=== PATIENT | male | born 1940 | race Caucasian/White ===

== ENCOUNTER → 2017-01-18 | Outpatient (CLI) | payer MEDICARE ==
[~2017-01-18] MED LIST: AMLO10TA2 PO; ASPI-650 PO; ATEN50TA41 PO; CALC200T3 PO; CHOL20002 PO; CLOP75TA22 PO; CYAN3000 PO; DIPH25CA61 PO; FURO-93 PO; HYDR-3138 PO; INSU100I13 SC; LISI-170 PO; MAGN300C PO; METF500T4 PO; MULT-717 PO; OMEG1CAP48 PO; REGADENOSON 0.4 MG/5 ML SYRINGE ONE; SIMV40TA3 PO; UBID30CA6 PO
== END | disposition home or self-care (01) ==
LOC: CFH 12:06
PROVIDERS: ATTEND Internal Medicine Cardiovascular Disease
DX: I25.10 Atherosclerotic heart disease of native coronary artery without angina pectoris (principal)
CPT/HCPCS: 78452; 93017; A9502; J2785

== ENCOUNTER → 2017-04-18 | Outpatient (CLI) | payer MEDICARE ==
[~2017-04-18] MED LIST changes: -REGADENOSON 0.4 MG/5 ML SYRINGE ONE
== END | disposition home or self-care (01) ==
LOC: CFH 12:38
PROVIDERS: ATTEND Internal Medicine Cardiovascular Disease
DX: I08.0 Rheumatic disorders of both mitral and aortic valves (principal); I25.810 Atherosclerosis of coronary artery bypass graft(s) without angina pectoris; I25.5 Ischemic cardiomyopathy; I10 Essential (primary) hypertension; E11.9 Type 2 diabetes mellitus without complications; Z95.0 Presence of cardiac pacemaker; Z95.5 Presence of coronary angioplasty implant and graft
CPT/HCPCS: 93306

== ENCOUNTER 2018-01-13 15:45 | Emergency (ER) | payer MEDICARE ==
[~2018-01-13] VITALS: Ht 175.3 cm; Wt 97.2 kg
[~2018-01-13 15:45] MED LIST changes: -CLOP75TA22 PO; +CLOP75TA52 PO; -HYDR-3138 PO; +HYDR-3237 PO
[2018-01-13 16:24] LABS: BASOPHILS # (AUTO) 0.04 x10^3/uL (0-0.1); BASOPHILS % (AUTO) 1 % (0-1); EOSINOPHILS # (AUTO) 0.19 x10^3/uL (0-0.4); EOSINOPHILS % (AUTO) 2 % (1-7); LYMPHOCYTES # (AUTO) 1.85 x10^3/uL (1-3.4); LYMPHOCYTES % (AUTO) 23 % (22-44); MD NO; MEAN CORPUSCULAR HEMOGLOBIN 25.5 pg (27.5-34.5); MEAN CORPUSCULAR HGB CONC 32.2 g/dL (33.2-36.2); MEAN CORPUSCULAR VOLUME 79.4 fL (81-97); MEAN PLATELET VOLUME 7.3 fL (7.4-10.4); MONOCYTES # (AUTO) 0.99 x10^3/uL (0.2-0.8); MONOCYTES % (AUTO) 12 % (2-9); NEUTROPHILS # (AUTO) 4.98 x10^3/uL (1.8-6.8); NEUTROPHILS % (AUTO) 62 % (42-75); PLATELET COUNT 277 x10^3/uL (130-400); RED BLOOD COUNT 4.84 x10^6/uL (4.38-5.82); RED CELL DISTRIBUTION WIDTH 17.8 % (9.4-14.8)
[2018-01-13 16:33] LABS: INTERNATIONAL NORMALIZED RATIO 2.34 (0.93-1.1); PROTHROMBIN TIME 23.7 Seconds (9.6-11.5)
[2018-01-13 16:37] LABS: ANION GAP 9 mmol/L (5-15); CALCIUM 9.6 mg/dL (8.5-10.1); CHLORIDE 109 mmol/L (98-107); CREATININE 1.58 mg/dL (0.7-1.3)
[2018-01-13 16:40] LABS: TROPONIN I < 0.015 ng/mL (0.000-0.045)
[2018-01-13] MEDS ORDERED: SODIUM CHLORIDE FLUSH 10ML SYR IVF ONE (17:30)
[2018-01-13] MEDS ORDERED: OMNIPAQUE 350 MG/ML, 100ML BOTTLE ONE (17:57)
[2018-01-13] MEDS ORDERED: ACET-1600 PO ×2 (18:16)
[2018-01-13] MEDS ORDERED: TAMS0.4C2 PO (18:16)
[2018-01-13] MEDS ORDERED: PANT40TA5 PO (18:16)
[2018-01-13 18:22] VITALS: BP 130/67
== END 2018-01-13 19:13 | disposition home or self-care (01) ==
LOC: ED 19:07
DX: R06.00 Dyspnea, unspecified (principal); I50.1 Left ventricular failure, unspecified; I25.2 Old myocardial infarction; E78.00 Pure hypercholesterolemia, unspecified; E11.9 Type 2 diabetes mellitus without complications; R53.1 Weakness; R79.1 Abnormal coagulation profile
CPT/HCPCS: 36415; 71045; 71275; 80048; 82040; 83880; 84484; 85025; 85610; 85730; 93005; 99285; Q9967

== ENCOUNTER → 2018-01-17 | Outpatient (CLI) | payer MEDICARE ==
[~2018-01-17] MED LIST changes: +ACET-1600 PO; +PANT40TA5 PO; +REGADENOSON 0.4 MG/5 ML SYRINGE ONE; +TAMS0.4C2 PO
== END | disposition home or self-care (01) ==
LOC: CFH 12:35
PROVIDERS: ATTEND Internal Medicine Cardiovascular Disease
DX: I21.09 ST elevation (STEMI) myocardial infarction involving other coronary artery of anterior wall (principal); I25.10 Atherosclerotic heart disease of native coronary artery without angina pectoris; I25.5 Ischemic cardiomyopathy
CPT/HCPCS: 78452; 93017; A9502; J2785

== ENCOUNTER 2018-08-09 09:21 | Inpatient (IN) | payer MEDICARE ==
[~2018-08-09] VITALS: Ht 175.3 cm; Wt 89.9 kg
[~2018-08-09 09:21] MED LIST changes: -AMLO10TA2 PO; +AMLO10TA6 PO; -CHOL20002 PO; +CHOL200052 PO; +METF500T17 PO; -METF500T4 PO; -REGADENOSON 0.4 MG/5 ML SYRINGE ONE
[2018-08-09] MEDS ORDERED: ASPIRIN 81 MG TABLET CHEW PO ONE (10:00)
[2018-08-09] MEDS ORDERED: LORA10TA75 PO (10:00)
[2018-08-09] MEDS ORDERED: ATOR40TA78 PO (10:02)
[2018-08-09] MEDS ORDERED: UBID100C41 PO (10:09)
[2018-08-09] MEDS ORDERED: MIRA25TA PO (10:12)
[2018-08-09] MEDS ORDERED: HYDR-3240 PO (10:13)
[2018-08-09] MEDS ORDERED: ASPIRIN 81 MG TABLET CHEW ONE (10:17)
[2018-08-09 10:29] LABS: BASOPHILS # (AUTO) 0.05 x10^3/uL (0-0.1); BASOPHILS % (AUTO) 1 % (0-1); EOSINOPHILS # (AUTO) 0.11 x10^3/uL (0-0.4); EOSINOPHILS % (AUTO) 1 % (1-7); LYMPHOCYTES # (AUTO) 1.57 x10^3/uL (1-3.4); LYMPHOCYTES % (AUTO) 19 % (22-44); MD NO; MEAN CORPUSCULAR HEMOGLOBIN 25.8 pg (27.5-34.5); MEAN CORPUSCULAR HGB CONC 32.6 g/dL (33.2-36.2); MEAN CORPUSCULAR VOLUME 79.2 fL (81-97); MEAN PLATELET VOLUME 7.9 fL (7.4-10.4); MONOCYTES # (AUTO) 0.94 x10^3/uL (0.2-0.8); MONOCYTES % (AUTO) 12 % (2-9); NEUTROPHILS # (AUTO) 5.41 x10^3/uL (1.8-6.8); NEUTROPHILS % (AUTO) 67 % (42-75); PLATELET COUNT 235 x10^3/uL (130-400); RED BLOOD COUNT 4.17 x10^6/uL (4.38-5.82); RED CELL DISTRIBUTION WIDTH 18.4 % (9.4-14.8)
[2018-08-09 10:41] LABS: ALANINE AMINOTRANSFERASE 19 U/L (12-78); ALBUMIN 3.6 g/dL (3.4-5.0); ANION GAP 7 mmol/L (5-15); CALCIUM 8.2 mg/dL (8.5-10.1); CHLORIDE 113 mmol/L (98-107); CREATININE 1.43 mg/dL (0.7-1.3)
[2018-08-09 10:45] LABS: ALKALINE PHOSPHATASE 56 U/L (45-117); TOTAL PROTEIN 7.2 g/dL (6.4-8.2); TROPONIN I 0.042 ng/mL (0.000-0.045)
[2018-08-09] MEDS ORDERED: CEFTRIAXONE 1,000 MG IM ONE (13:00)
[2018-08-09] MEDS ORDERED: D5%-0.45% NACL 1,000 ML IV SCH (13:01)
[2018-08-09] MEDS ORDERED: ONDANSETRON 2MG/ML, 2ML IVPush PRN (13:30)
[2018-08-09] MEDS ORDERED: LABETALOL 5MG/ML, 20ML IVPush PRN (13:30)
[2018-08-09] MEDS ORDERED: ONDANSETRON ODT 4 MG PO PRN (13:30)
[2018-08-09] MEDS ORDERED: POLYETHYLENE GLYCOL 17 GM PACKET PO PRN (13:30)
[2018-08-09] MEDS: ENOXAPARIN 30 MG/0.3 ML SQ SCH (13:30)
[2018-08-09 14:18] VITALS: BP 129/80
[2018-08-09] MEDS: CEFTRIAXONE PMX 2GM/50ML 50 ML IV SCH (15:52)
[2018-08-09] MEDS ORDERED: DEXTROSE 4 GM TAB.CHEW PO PRN (17:30)
[2018-08-09] MEDS ORDERED: GLUCAGON 1 MG IM PRN (17:30)
[2018-08-09] MEDS ORDERED: HYDROcodone/APAP 5/325 TABLET PO PRN (17:30)
[2018-08-09] MEDS ORDERED: DEXTROSE 50%, 50ML SYRINGE IVPush PRN (17:30)
[2018-08-09] MEDS: GUAIFENESIN 200 MG TABLET PO SCH ×2 (17:44→20:05)
[2018-08-09] MEDS: FUROSEMIDE 20 MG/2 ML IV SCH (18:27)
[2018-08-09 18:55] LABS: CHOL/HDL RATIO 3.7; LDL/HDL RATIO 1.8 (0.5-3.0)
[2018-08-09 19:12] LABS: HEMOGLOBIN A1C 7.2 % (4.2-6.3)
[2018-08-09] MEDS: CHOLECALCIFEROL 1,000 UNIT TABLET PO SCH (20:05)
[2018-08-09] MEDS: TAMSULOSIN 0.4 MG CAP.ER.24H PO SCH (20:05)
[2018-08-09] MEDS: ATORVASTATIN 40 MG TABLET PO SCH (20:06)
[2018-08-09] MEDS: LISINOPRIL 20 MG TABLET PO SCH (20:06)
[2018-08-09] MEDS: DOXYCYCLINE 100MG TABLET PO SCH (20:06)
[2018-08-09] MEDS: ACETAMINOPHEN 500 MG TABLET PO SCH (20:06)
[2018-08-09] MEDS: SODIUM CHLORIDE FLUSH 10ML SYR IVF SCH (20:13)
[2018-08-09] MEDS: INSULIN LISPRO 100 UNITS/ML, PEN SQ-INSULIN SCH (20:13)
[2018-08-09 20:17] VITALS: BP 119/72
[2018-08-09] MEDS: INSULIN GLARGINE 100 UNITS/ML, PEN SQ-INSULIN SCH (21:18)
[2018-08-10 01:24] VITALS: BP 118/71
[2018-08-10] MEDS: ENOXAPARIN 30 MG/0.3 ML SQ SCH ×2 (01:30→13:47)
[2018-08-10 04:33] LABS: BASOPHILS # (AUTO) 0.04 x10^3/uL (0-0.1); BASOPHILS % (AUTO) 1 % (0-1); EOSINOPHILS # (AUTO) 0.21 x10^3/uL (0-0.4); EOSINOPHILS % (AUTO) 3 % (1-7); LYMPHOCYTES # (AUTO) 1.31 x10^3/uL (1-3.4); LYMPHOCYTES % (AUTO) 19 % (22-44); MD NO; MEAN CORPUSCULAR HEMOGLOBIN 26.3 pg (27.5-34.5); MEAN CORPUSCULAR HGB CONC 33.2 g/dL (33.2-36.2); MEAN CORPUSCULAR VOLUME 79.2 fL (81-97); MEAN PLATELET VOLUME 7.5 fL (7.4-10.4); MONOCYTES # (AUTO) 0.99 x10^3/uL (0.2-0.8); MONOCYTES % (AUTO) 15 % (2-9); NEUTROPHILS # (AUTO) 4.24 x10^3/uL (1.8-6.8); NEUTROPHILS % (AUTO) 62 % (42-75); PLATELET COUNT 204 x10^3/uL (130-400); RED BLOOD COUNT 3.99 x10^6/uL (4.38-5.82); RED CELL DISTRIBUTION WIDTH 18.6 % (9.4-14.8)
[2018-08-10 04:45] LABS: ALBUMIN 3.4 g/dL (3.4-5.0); ANION GAP 9 mmol/L (5-15); CALCIUM 8.8 mg/dL (8.5-10.1); CHLORIDE 110 mmol/L (98-107)
[2018-08-10 04:50] LABS: ALANINE AMINOTRANSFERASE 17 U/L (12-78); ALKALINE PHOSPHATASE 56 U/L (45-117); BILIRUBIN,TOTAL 1.1 mg/dL (0.2-1.0); CREATININE 1.43 mg/dL (0.7-1.3); TOTAL PROTEIN 6.7 g/dL (6.4-8.2)
[2018-08-10] MEDS: GUAIFENESIN 200 MG TABLET PO SCH ×4 (05:14→19:28)
[2018-08-10] MEDS: INSULIN LISPRO 100 UNITS/ML, PEN SQ-INSULIN SCH ×4 (07:00→19:31)
[2018-08-10] MEDS ORDERED: IRON SUCROSE COMPLEX 100MG/5ML IV ONE (08:00)
[2018-08-10] MEDS: FUROSEMIDE 20 MG/2 ML IV SCH ×2 (08:04→18:08)
[2018-08-10] MEDS: CHOLECALCIFEROL 1,000 UNIT TABLET PO SCH ×2 (08:07→19:28)
[2018-08-10] MEDS: LISINOPRIL 20 MG TABLET PO SCH ×2 (08:07→19:28)
[2018-08-10] MEDS: DOXYCYCLINE 100MG TABLET PO SCH ×2 (08:07→19:28)
[2018-08-10] MEDS: CYANOCOBALAMIN 1,000 MCG TABLET PO SCH (08:07)
[2018-08-10] MEDS: ACETAMINOPHEN 500 MG TABLET PO SCH ×2 (08:08→19:28)
[2018-08-10] MEDS: SODIUM CHLORIDE FLUSH 10ML SYR IVF SCH ×2 (08:08→19:36)
[2018-08-10] MEDS: SENNA/DOCUSATE TABLET PO SCH (08:09)
[2018-08-10 08:40] VITALS: BP 113/68
[2018-08-10 12:51] LABS: INTERNATIONAL NORMALIZED RATIO 1.85 (0.93-1.1); PROTHROMBIN TIME 19.2 Seconds (9.6-11.5)
[2018-08-10] MEDS: CEFTRIAXONE PMX 2GM/50ML 50 ML IV SCH (13:47)
[2018-08-10 14:40] VITALS: BP 114/71
[2018-08-10] MEDS: ATORVASTATIN 40 MG TABLET PO SCH (19:27)
[2018-08-10] MEDS: TAMSULOSIN 0.4 MG CAP.ER.24H PO SCH (19:28)
[2018-08-10 19:29] VITALS: BP 110/66
[2018-08-10] MEDS: INSULIN GLARGINE 100 UNITS/ML, PEN SQ-INSULIN SCH (19:31)
[2018-08-11 01:49] VITALS: BP 116/68
[2018-08-11] MEDS: ENOXAPARIN 30 MG/0.3 ML SQ SCH ×2 (01:52→13:37)
[2018-08-11 05:02] LABS: BASOPHILS # (AUTO) 0.03 x10^3/uL (0-0.1); BASOPHILS % (AUTO) 0 % (0-1); EOSINOPHILS # (AUTO) 0.26 x10^3/uL (0-0.4); EOSINOPHILS % (AUTO) 4 % (1-7); LYMPHOCYTES # (AUTO) 1.24 x10^3/uL (1-3.4); LYMPHOCYTES % (AUTO) 19 % (22-44); MD NO; MEAN CORPUSCULAR HEMOGLOBIN 25.9 pg (27.5-34.5); MEAN CORPUSCULAR HGB CONC 32.9 g/dL (33.2-36.2); MEAN CORPUSCULAR VOLUME 78.6 fL (81-97); MEAN PLATELET VOLUME 7.8 fL (7.4-10.4); MONOCYTES # (AUTO) 1.14 x10^3/uL (0.2-0.8); MONOCYTES % (AUTO) 17 % (2-9); NEUTROPHILS # (AUTO) 3.88 x10^3/uL (1.8-6.8); NEUTROPHILS % (AUTO) 59 % (42-75); PLATELET COUNT 184 x10^3/uL (130-400); RED BLOOD COUNT 4.09 x10^6/uL (4.38-5.82); RED CELL DISTRIBUTION WIDTH 18.6 % (9.4-14.8)
[2018-08-11 05:12] LABS: ALBUMIN 3.2 g/dL (3.4-5.0); ANION GAP 11 mmol/L (5-15); CALCIUM 8.9 mg/dL (8.5-10.1); CHLORIDE 108 mmol/L (98-107); CREATININE 1.38 mg/dL (0.7-1.3)
[2018-08-11] MEDS: GUAIFENESIN 200 MG TABLET PO SCH ×4 (05:23→20:03)
[2018-08-11] MEDS: INSULIN LISPRO 100 UNITS/ML, PEN SQ-INSULIN SCH ×4 (07:00→20:02)
[2018-08-11] MEDS: FUROSEMIDE 20 MG/2 ML IV SCH (07:58)
[2018-08-11] MEDS: SODIUM CHLORIDE FLUSH 10ML SYR IVF SCH ×2 (07:58→20:04)
[2018-08-11] MEDS: LISINOPRIL 20 MG TABLET PO SCH ×2 (07:59→20:03)
[2018-08-11] MEDS: CYANOCOBALAMIN 1,000 MCG TABLET PO SCH (07:59)
[2018-08-11] MEDS: ACETAMINOPHEN 500 MG TABLET PO SCH ×2 (07:59→20:03)
[2018-08-11] MEDS: DOXYCYCLINE 100MG TABLET PO SCH ×2 (07:59→20:03)
[2018-08-11] MEDS: SENNA/DOCUSATE TABLET PO SCH (07:59)
[2018-08-11] MEDS: CHOLECALCIFEROL 1,000 UNIT TABLET PO SCH ×2 (08:00→20:03)
[2018-08-11 09:10] VITALS: BP 95/62
[2018-08-11] MEDS: CEFTRIAXONE PMX 2GM/50ML 50 ML IV SCH (09:19)
[2018-08-11 13:40] VITALS: BP 108/67
[2018-08-11] MEDS: CARVEDILOL 3.125 MG TABLET PO SCH (16:48)
[2018-08-11 19:48] VITALS: BP 102/62
[2018-08-11] MEDS: INSULIN GLARGINE 100 UNITS/ML, PEN SQ-INSULIN SCH (20:03)
[2018-08-11] MEDS: ATORVASTATIN 40 MG TABLET PO SCH (20:03)
[2018-08-11] MEDS: TAMSULOSIN 0.4 MG CAP.ER.24H PO SCH (20:04)
[2018-08-12 01:43] VITALS: BP 115/71
[2018-08-12] MEDS: ENOXAPARIN 30 MG/0.3 ML SQ SCH (01:43)
[2018-08-12] MEDS: CARVEDILOL 3.125 MG TABLET PO SCH (05:13)
[2018-08-12] MEDS: GUAIFENESIN 200 MG TABLET PO SCH (05:13)
[2018-08-12] MEDS: INSULIN LISPRO 100 UNITS/ML, PEN SQ-INSULIN SCH (07:00)
[2018-08-12] MEDS: LISINOPRIL 20 MG TABLET PO SCH (07:35)
[2018-08-12] MEDS: SENNA/DOCUSATE TABLET PO SCH (07:36)
[2018-08-12] MEDS: ACETAMINOPHEN 500 MG TABLET PO SCH (07:38)
[2018-08-12] MEDS: DOXYCYCLINE 100MG TABLET PO SCH (07:40)
[2018-08-12] MEDS: CYANOCOBALAMIN 1,000 MCG TABLET PO SCH (07:40)
[2018-08-12] MEDS: CHOLECALCIFEROL 1,000 UNIT TABLET PO SCH (07:41)
[2018-08-12 07:43] VITALS: BP 113/73
[2018-08-12] MEDS: CEFTRIAXONE PMX 2GM/50ML 50 ML IV SCH (07:50)
[2018-08-12] MEDS: SODIUM CHLORIDE FLUSH 10ML SYR IVF SCH (07:56)
[2018-08-12] MEDS ORDERED: FUROSEMIDE 20 MG TABLET PO SCH (08:00)
[2018-08-12] MEDS ORDERED: GUAI200T3 PO (09:12)
[2018-08-12] MEDS ORDERED: CARV3.1212 PO (09:12)
[2018-08-12] MEDS ORDERED: DOXY100T PO (09:12)
[2018-08-12] MEDS ORDERED: LISI-167 PO (09:12)
[2018-08-12] MEDS ORDERED: INSU100V8 SQ (09:13)
[2018-08-12] MEDS ORDERED: CEFD300C37 PO (09:14)
[2018-08-12] MEDS ORDERED: AMOX1TAB64 PO (11:30)
== END 2018-08-12 11:40 | disposition home or self-care (01) | DRG 291 ==
LOC: ED 11:11 → EDIP 12:41 → 3NW 13:35 → DCLOUNGE 08-12 11:18
PROVIDERS: ADMIT Hospitalist; ATTEND Hospitalist
DX: I11.0 Hypertensive heart disease with heart failure (principal); J18.9 Pneumonia, unspecified organism; D68.59 Other primary thrombophilia; I50.41 Acute combined systolic (congestive) and diastolic (congestive) heart failure; E11.9 Type 2 diabetes mellitus without complications; I48.91 Unspecified atrial fibrillation; Z95.1 Presence of aortocoronary bypass graft; Z95.5 Presence of coronary angioplasty implant and graft; K21.9 Gastro-esophageal reflux disease without esophagitis; I25.2 Old myocardial infarction; D50.9 Iron deficiency anemia, unspecified; E78.00 Pure hypercholesterolemia, unspecified; E78.5 Hyperlipidemia, unspecified; I25.10 Atherosclerotic heart disease of native coronary artery without angina pectoris; N40.0 Benign prostatic hyperplasia without lower urinary tract symptoms; Z79.4 Long term (current) use of insulin; Z79.899 Other long term (current) drug therapy; Z82.3 Family history of stroke; Z82.49 Family history of ischemic heart disease and other diseases of the circulatory system; Z83.3 Family history of diabetes mellitus; Z86.711 Personal history of pulmonary embolism; Z95.810 Presence of automatic (implantable) cardiac defibrillator
CPT/HCPCS: 36415; 71045; 80048; 80053; 80061; 82040; 82607; 82728; 82962; 83036; 83540; 83550; 83735; 83880; 84100; 84145; 84439; 84443; 84484; 85025; 85610; 87040; 87070; 87205; 93005; G0378; J0696; J1650; J1756; J1815; J1940

== ENCOUNTER 2018-08-30 19:49 | Inpatient (IN) | payer MEDICARE ==
[~2018-08-30] VITALS: Ht 175.3 cm; Wt 94.5 kg
[~2018-08-30 19:49] MED LIST changes: +AMOX1TAB64 PO; +ATOR40TA78 PO; +CARV3.1212 PO; +CEFD300C37 PO; +DOXY100T PO; +GUAI200T3 PO; +HYDR-3240 PO; +INSU100V8 SQ; +LISI-167 PO; +LORA10TA75 PO; +MIRA25TA PO; +UBID100C41 PO
[2018-08-30] MEDS ORDERED: DILTIAZEM 5 MG/ML, 5ML IV ONE (20:00)
[2018-08-30] MEDS ORDERED: DILTIAZEM 5 MG/ML, 5ML ONE (20:10)
[2018-08-30] MEDS ORDERED: WARF5TAB PO (20:14)
[2018-08-30 20:30] LABS: BASOPHILS # (AUTO) 0.02 x10^3/uL (0-0.1); BASOPHILS % (AUTO) 0 % (0-1); EOSINOPHILS % (AUTO) 0 % (1-7); LYMPHOCYTES # (AUTO) 0.86 x10^3/uL (1-3.4); LYMPHOCYTES % (AUTO) 11 % (22-44); MD NO; MEAN CORPUSCULAR HEMOGLOBIN 25.8 pg (27.5-34.5); MEAN CORPUSCULAR HGB CONC 32.7 g/dL (33.2-36.2); MEAN PLATELET VOLUME 8.3 fL (7.4-10.4); MONOCYTES # (AUTO) 1.21 x10^3/uL (0.2-0.8); MONOCYTES % (AUTO) 15 % (2-9); NEUTROPHILS # (AUTO) 5.93 x10^3/uL (1.8-6.8); NEUTROPHILS % (AUTO) 74 % (42-75); PLATELET COUNT 213 x10^3/uL (130-400); RED BLOOD COUNT 4.29 x10^6/uL (4.38-5.82); RED CELL DISTRIBUTION WIDTH 18.2 % (9.4-14.8)
[2018-08-30 20:39] LABS: ALBUMIN 3.4 g/dL (3.4-5.0); ANION GAP 8 mmol/L (5-15); CHLORIDE 110 mmol/L (98-107); CREATININE 1.81 mg/dL (0.7-1.3)
[2018-08-30 20:42] LABS: INTERNATIONAL NORMALIZED RATIO 4.97 (0.93-1.1); PROTHROMBIN TIME 49.5 Seconds (9.6-11.5)
[2018-08-30 21:13] LABS: TROPONIN I 0.224 ng/mL (0.000-0.045)
[2018-08-30] MEDS ORDERED: CARVEDILOL 3.125 MG TABLET ONE (21:27)
[2018-08-30] MEDS ORDERED: CARVEDILOL 3.125 MG TABLET PO ONE (21:30)
[2018-08-30] MEDS ORDERED: DILTIAZEM 5 MG/ML, 5ML IVPush ONE (21:30)
[2018-08-30] MEDS ORDERED: NS + 20MEQ KCL 1,000 ML IV SCH (21:59)
[2018-08-30] MEDS ORDERED: DEXTROSE 4 GM TAB.CHEW PO PRN (22:00)
[2018-08-30] MEDS ORDERED: LISINOPRIL 10 MG TABLET PO SCH (22:00)
[2018-08-30] MEDS ORDERED: FAMOTIDINE 20 MG TABLET PO SCH (22:00)
[2018-08-30] MEDS ORDERED: OXYcodone IR 5MG TABLET PO PRN (22:00)
[2018-08-30] MEDS ORDERED: INSULIN GLARGINE 100 UNITS/ML, PEN SQ-INSULIN SCH (22:00)
[2018-08-30] MEDS ORDERED: POLYETHYLENE GLYCOL 17 GM PACKET PO PRN (22:00)
[2018-08-30] MEDS ORDERED: INSULIN LISPRO 100 UNITS/ML, PEN SQ-INSULIN SCH (22:00)
[2018-08-30] MEDS ORDERED: NITROGLYCERIN 0.4 MG BOTTLE (25 TABS) SL PRN (22:00)
[2018-08-30] MEDS ORDERED: GLUCAGON 1 MG IM PRN (22:00)
[2018-08-30] MEDS ORDERED: morphine SULFATE 10 MG/ML, 1ML IVPush PRN (22:00)
[2018-08-30] MEDS ORDERED: ATORVASTATIN 40 MG TABLET PO SCH (22:00)
[2018-08-30] MEDS ORDERED: DILTIAZEM 5 MG/ML, 5ML IVPush PRN (22:00)
[2018-08-30] MEDS ORDERED: ACETAMINOPHEN 500 MG TABLET PO SCH (22:00)
[2018-08-30] MEDS ORDERED: DEXTROSE 50%, 50ML SYRINGE IVPush PRN (22:00)
[2018-08-30] MEDS ORDERED: TAMSULOSIN 0.4 MG CAP.ER.24H PO SCH (22:00)
[2018-08-30] MEDS ORDERED: ONDANSETRON 2MG/ML, 2ML IVPush PRN (22:00)
[2018-08-30] MEDS ORDERED: DOCUSATE 100 MG CAPSULE PO PRN (22:00)
[2018-08-30] MEDS ORDERED: NITROGLYCERIN 0.4 MG/SPRAY SL PRN (22:00)
[2018-08-30] MEDS ORDERED: GUAIFENESIN/DM 200-20MG, 10ML UDC PO PRN (22:00)
[2018-08-30] MEDS ORDERED: NS + 20MEQ KCL 1,000 ML IV ONE (22:22)
[2018-08-30] MEDS ORDERED: FUROSEMIDE 20 MG/2 ML IV SCH (22:30)
[2018-08-30] MEDS ORDERED: SODIUM CHLORIDE 0.9%, 500ML IVBOLUS ONE (23:00)
[2018-08-30 23:13] VITALS: BP 106/65
[2018-08-31] MEDS ORDERED: EPINEPHRINE SYRINGE 0.1 MG/ML, 10ML ONE (01:30)
[2018-08-31] MEDS ORDERED: AMIODARONE 50 MG/ML, 3ML ONE (01:30)
[2018-08-31] MEDS ORDERED: MAGNESIUM SULFATE 1 GM/2 ML ONE (01:30)
[2018-08-31] MEDS ORDERED: CODE BLUE RESPONSE XX ONE (02:00)
[2018-08-31] MEDS ORDERED: CARVEDILOL 3.125 MG TABLET PO SCH (06:00)
[2018-08-31] MEDS ORDERED: FUROSEMIDE 20 MG PO SCH (09:00)
[2018-08-31] MEDS ORDERED: SENNA/DOCUSATE TABLET PO SCH (09:00)
[2018-08-31] MEDS ORDERED: ACETAMINOPHEN 500 MG TABLET PO SCH (09:00)
[2018-08-31] MEDS ORDERED: SODIUM CHLORIDE FLUSH 10ML SYR IVF SCH (09:00)
== END 2018-08-31 01:35 | disposition expired ==
LOC: ED 21:02 → SUATTDRO 21:51 → EDIP 22:10 → 5SO 22:54
PROVIDERS: ADMIT Family Medicine; ATTEND Family Medicine
PROC: 0BH17EZ Insertion of Endotracheal Airway into Trachea, Via Natural or Artificial Opening (ICD-10-PCS; principal; 2018-08-30)
PROC: 5A12012 Performance of Cardiac Output, Single, Manual (ICD-10-PCS; 2018-08-30)
DX: I21.A1 Myocardial infarction type 2 (principal); N17.0 Acute kidney failure with tubular necrosis; D68.69 Other thrombophilia; I47.2 Ventricular tachycardia; I50.42 Chronic combined systolic (congestive) and diastolic (congestive) heart failure; E11.9 Type 2 diabetes mellitus without complications; E78.00 Pure hypercholesterolemia, unspecified; E78.5 Hyperlipidemia, unspecified; E86.0 Dehydration; I11.0 Hypertensive heart disease with heart failure; I25.10 Atherosclerotic heart disease of native coronary artery without angina pectoris; I25.2 Old myocardial infarction; I48.2 Chronic atrial fibrillation; I49.01 Ventricular fibrillation; N40.0 Benign prostatic hyperplasia without lower urinary tract symptoms; Z79.01 Long term (current) use of anticoagulants; Z82.3 Family history of stroke; Z86.711 Personal history of pulmonary embolism; Z95.1 Presence of aortocoronary bypass graft; Z95.5 Presence of coronary angioplasty implant and graft; Z95.0 Presence of cardiac pacemaker
CPT/HCPCS: 36415; 71045; 80048; 82040; 82962; 83735; 83880; 84484; 85025; 85610; 92950; 93005; 96361; 96374; G0378; J3475; J3480; J0282; J1815; J1940; J7040